=== PATIENT | male | born 1975 | race Caucasian/White ===

== ENCOUNTER 2017-07-07 17:36 | Emergency (ER) | payer SELFPAY ==
[~2017-07-07] VITALS: Ht 175.3 cm; Wt 79.0 kg
[2017-07-07 17:56] VITALS: BP 144/92; PULSE 109; RESP 17; TEMP 98.6; O2SAT 95
--- NOTE | 2017-07-07 19:12 | PD ---
HPI Chief Complaint: Oral / Dental Pain or Problem Time Seen by Provider: 19:00 Travel History International Travel<30 days: No Contact w/Intl Traveler<30days: No Traveled to known affect area: No History of Present Illness HPI 41-year-old male presents to emergency Department with complaint of right lower dental pain and facial swelling 2-3 days. Denies fever. Reports feeling nauseated today. Denies vomiting. Denies sore throat or difficulty swallowing. Denies radiation of pain. Rates pain 2/10. Describes it as a pressure. Sometimes does get a quick sharp, shooting pain. No known aggravating factors. Has been taking ibuprofen for symptom management. Has no other medical complaints. Allergies to penicillin. No other modifying factors or associated signs and symptoms. PFSH Social History Tobacco Use: No Allergies-Medications (Allergen,Severity, Reaction): Coded Allergies: Penicillins (Verified Allergy, Intermediate, RASH, 07/07/17) Reported Meds & Prescriptions Reported Meds & Active Scripts Active Peridex Liq (Chlorhexidine Gluconate (Mouth) Liq) 0.12% Soln 15 Ml SWISH-SPIT BID 10 Days Ibuprofen 800 Mg Tab 800 Mg PO Q6HR PRN Deltasone (Prednisone) 20 Mg Tab 40 Mg PO DAILY 4 Days start 07/08/2017 Clindamycin (Clindamycin HCl) 150 Mg Cap 450 Mg PO Q6H 10 Days Review of Systems Except as stated in HPI: all other systems reviewed are Neg Physical Exam Narrative GENERAL: Well-nourished, well-developed male patient, in no acute distress; afebrile, nontoxic-appearing SKIN: Warm and dry. HEAD: Atraumatic. Normocephalic. Right lower facial edema; without erythema; minimal tenderness on palpation. No lymphadenopathy. EYES: Pupils equal and round. No scleral icterus. No injection or drainage. ENT: Mucosa pink and moist. No erythema or exudates. No uvular edema. No uvular , palatal, or tonsillar deviation. Airway patent. EARS: Bilateral pinnae and external canals appear within normal limits. Bilateral tympanic membranes without erythema, dullness or perforation. MOUTH: Mucous membranes moist, no lesions, tongue and gums appear normal. Unable to verify which tooth is tender on palpation on exam. Gingiva with edema and without fluctuance. No drainage or erythema noted. NECK: Trachea midline. No lymphadenopathy. CARDIOVASCULAR: Regular rate. RESPIRATORY: No accessory muscle use. GASTROINTESTINAL: Flat. MUSCULOSKELETAL: No obvious deformities. No clubbing. No cyanosis. No edema. NEUROLOGICAL: Awake and alert. Oriented 3. No obvious cranial nerve deficits. Motor grossly within normal limits. Normal speech. PSYCHIATRIC: Appropriate mood and affect; insight and judgment normal. Data Data Last Documented VS Vital Signs Date Time Temp Pulse Resp B/P (MAP) Pulse Ox O2 Delivery O2 Flow Rate FiO2 07/07/17 17:56 98.6 109 17 144/92 (109) 95 Orders Orders Clindamycin Inj (Cleocin Inj) (07/07/17 19:15) Prednisone (Deltasone) (07/07/17 19:15) Ibuprofen (Motrin) (07/07/17 19:15) [facility] Medical Decision Making Medical Screen Exam Complete: Yes Emergency Medical Condition: Yes Medical Record Reviewed: Yes Differential Diagnosis Dentalgia, dental abscess, infected dental caries, gingivitis Narrative Course 31-year-old male with right lower dental abscess. There is edema noted to the right lower gums but there is no fluctuance on palpation. Instructed patient to return for incision and drainage if symptoms worsen despite antibiotic therapy. Right lower facial edema. Patient is afebrile and nontoxic- appearing. Denies fever, vomiting. Clindamycin 600 mg IM and Deltasone administered in the ER. Ibuprofen administered in the ER. Instructed patient to follow up with dentist. Clindamycin, ibuprofen, Peridex mouth rinse, Deltasone prescribed for home. Instructed patient to follow up with primary care provider. Patient verbalizes understanding and agreement with treatment plan. Patient is medically cleared and stable for discharge. Discussed reasons to return to the emergency department. Patient agrees with treatment plan. The patients vital signs are stable and the patient is stable for outpatient follow-up and treatment. Patient discharged home, stable and in no acute distress. Diagnosis Primary Impression: Dental abscess Referrals: Dentist Primary Care Physician Patient Instructions: Dental Abscess (ED), General Instructions, Toothache (ED) Departure Forms: Tests/Procedures, Work Release Enter return to work date: Jul 09, 2017 Additional Instructions: Complete full course of antibiotics Ibuprofen or Tylenol as directed and as needed to reduce pain and inflammation Use Magic mouthwash rinse as directed and as needed to decrease pain Use Peridex as directed for oral hygiene Warm or cool compresses to the affected area Follow-up with dentist Follow-up with primary care provider Return to emergency department immediately with worsening of symptoms, particularly as discussed Med/Other Pt SpecificInfo: Prescription(s) given Scripts Chlorhexidine Gluconate (Mouth) Liq (Peridex Liq) 0.12% Soln 15 ML SWISH-SPIT BID for 10 Days, #300 ML 0 Refills Prov: Delores Gomez 07/07/17 Ibuprofen (Ibuprofen) 800 Mg Tab 800 MG PO Q6HR Y for PAIN, #30 TAB 0 Refills Prov: Delores Gomez 07/07/17 Prednisone (Deltasone) 20 Mg Tab 40 MG PO DAILY for 4 Days, #8 TAB 0 Refills start 07/08/2017 Prov: Delores Gomez 07/07/17 Clindamycin (Clindamycin) 150 Mg Cap 450 MG PO Q6H for Infection for 10 Days, #120 CAP 0 Refills Prov: Delores Gomez 07/07/17 Disposition: 01 DISCHARGE HOME Condition: Stable Delores Gomez Jul 07, 2017 19:12
[2017-07-07] MEDS ORDERED: IBUP1TAB7 PO (19:14)
[2017-07-07] MEDS ORDERED: PRED-503 PO (19:14)
[2017-07-07] MEDS ORDERED: CLIN150C14 PO (19:14)
[2017-07-07] MEDS ORDERED: CLINDAMYCIN PHOS 600 MG/4 ML VIAL IM ONE (19:15)
[2017-07-07] MEDS ORDERED: PERI0.126 SWISH-SPIT (19:15)
[2017-07-07] MEDS ORDERED: predniSONE 20 MG TAB PO ONE (19:15)
[2017-07-07] MEDS ORDERED: IBUPROFEN 800 MG TAB PO ONE (19:15)
== END 2017-07-07 20:09 | disposition home or self-care (01) ==
LOC: PHEFT 17:36
DX: K04.7 Periapical abscess without sinus (principal)
CPT/HCPCS: 96372; 99284; J7512